=== PATIENT | female | born 1980 | race Caucasian/White ===

== ENCOUNTER 2019-03-29 16:02 | Emergency (ER) | payer BC ==
[~2019-03-29] VITALS: Ht 167.6 cm; Wt 88.5 kg
[2019-03-29] MEDS ORDERED: IBUPROFEN 800800 M1 PO (16:58)
[2019-03-29 17:13] VITALS: BP 202/100
== END 2019-03-29 17:18 | disposition home or self-care (01) ==
LOC: M.ERS 16:02
DX: S63.592A Other specified sprain of left wrist, initial encounter (principal); X58.XXXA Exposure to other specified factors, initial encounter; Y93.51 Activity, roller skating (inline) and skateboarding; Y92.89 Other specified places as the place of occurrence of the external cause; Y99.8 Other external cause status